=== PATIENT | female | born 1940 ===

== ENCOUNTER 2024-10-11 09:30 | Inpatient (IN) | payer OTHER ==
[~2024-10-11] VITALS: Ht 91.4 cm; Wt 61.7 kg
[2024-10-11] MEDS ORDERED: ATACAND HCT 321 EAC1 PO (10:52)
[2024-10-11] MEDS ORDERED: PEPCID20 MG PO (10:52)
[2024-10-11] MEDS ORDERED: NORVASC5 MG PO (10:52)
[2024-10-11] MEDS ORDERED: LEVOXYL100 MCG PO (10:52)
[2024-10-11] MEDS ORDERED: VITAMIN E400 UNI7 (10:53)
[2024-10-11] MEDS ORDERED: RESTORIL30 MG PO (10:53)
[2024-10-11 10:54] VITALS: BP 149/76
[2024-10-11] MEDS ORDERED: MELATONIN10 M2 (10:54)
[2024-10-17] MEDS ORDERED: OxyCODONE HCL 5 MG TABLET (ROXICODONE) PO PRN (12:00)
[2024-10-17] MEDS ORDERED: MORPHINE SULFATE 4 MG/ML CARTRIDGE IV PRN (12:00)
[2024-10-17] MEDS ORDERED: RINGERS SOLUTION,LACTATED 1,000 ML IV SCH (12:00)
[2024-10-17] MEDS ORDERED: ONDANSETRON HCL 2 MG/ML VIAL IV PRN (12:00)
[2024-10-17] MEDS ORDERED: CEFTRIAXONE SODIUM 2,000 MG VIAL IV ONE (13:00)
[2024-10-17] MEDS ORDERED: BUPIVACAINE HCL 30 ML VIAL IJ ONE (13:00)
[2024-10-17] MEDS ORDERED: METRONIDAZOLE/SODIUM CHLORIDE 500 MG/100 ML PIGGYBACK IV ONE (13:00)
[2024-10-17] MEDS ORDERED: HYOSCYAMINE SULFATE 0.125 MG TAB.SUBL SL SCH (13:00)
[2024-10-17] MEDS ORDERED: LIDOCAINE HCL 1%/EPINEPHRINE 20ML VIAL IJ ONE (13:00)
[2024-10-17] MEDS ORDERED: ACETAMINOPHEN 500 MG GEL..CAP PO SCH (14:00)
[2024-10-17] MEDS ORDERED: hydrALAZINE HCL 20 MG VIAL IV PRN (16:30)
[2024-10-17] MEDS ORDERED: POLYETHYLENE GLYCOL 3350 17 GM BLIST.PACK PO SCH (17:00)
[2024-10-17] MEDS ORDERED: GABAPENTIN 300 MG CAPSULE PO SCH (17:00)
[2024-10-17] MEDS ORDERED: METOCLOPRAMIDE HCL 5 MG/ML VIAL IV SCH (17:00)
[2024-10-17 20:34] VITALS: BP 149/76; O2SAT 98
[2024-10-17 20:58] LABS: BASO % 0.2 % (0.1-1.2); EOS # 0.00 (0.04-0.54); EOS % 0.0 % (0.7-7.0); LYMPH # 0.50 (1.18-3.74); LYMPH % 2.6 % (19.3-53.1); MEAN PLATELET VOLUME 10.20 fl (9.4-12.4); MONO # 1.17 (0.24-0.82); MONO % 6.0 % (4.7-12.5); NEUT # 17.67 (1.56-6.13); NEUT % 90.9 % (34.0-71.1); RED CELL DISTRIBUTION WIDTH 13.5 % (11.6-14.4)
[2024-10-17] MEDS ORDERED: FAMOTIDINE/PF 20 MG/2 ML VIAL IV PUSH SCH (21:00)
[2024-10-18 03:34] VITALS: BP 150/80; O2SAT 97
[2024-10-18] MEDS ORDERED: LEVOTHYROXINE SODIUM 100 MCG TABLET PO SCH (06:00)
[2024-10-18 06:25] LABS: BASO % 0.1 % (0.1-1.2); EOS # 0.00 (0.04-0.54); EOS % 0.0 % (0.7-7.0); LYMPH # 0.57 (1.18-3.74); LYMPH % 3.3 % (19.3-53.1); MEAN PLATELET VOLUME 9.40 fl (9.4-12.4); MONO # 0.82 (0.24-0.82); MONO % 4.8 % (4.7-12.5); NEUT # 15.77 (1.56-6.13); NEUT % 91.5 % (34.0-71.1); RED CELL DISTRIBUTION WIDTH 13.5 % (11.6-14.4)
[2024-10-18 07:10] LABS: BUN CREA RATIO 14.0 (7.0-25.0); CREATININE SERUM 0.92 mg/dL (0.55-1.02); GFR 58.3; GLUCOSE FASTING 124.0 mg/dL (65-100); OSMOLALITY SERUM 279.0 MOSM/KG (275-295)
[2024-10-18 08:00] VITALS: BP 125/75; O2SAT 99
[2024-10-18] MEDS ORDERED: LACTOBACILLUS ACIDOPHILUS 1 CAP CAP PO SCH (09:00)
[2024-10-18] MEDS ORDERED: HYDROCHLOROTHIAZIDE 12.5 MG CAPSULE PO SCH (09:00)
[2024-10-18] MEDS ORDERED: CANDESARTAN CILEXETIL 32 MG TABLET PO SCH (09:00)
[2024-10-18] MEDS ORDERED: AMLODIPINE BESYLATE 5 MG TABLET PO SCH (09:00)
[2024-10-18] MEDS ORDERED: MAGNESIUM SULFATE IN WATER 50 ML IV NR (10:00)
[2024-10-18 16:00] VITALS: BP 111/71; O2SAT 97
[2024-10-18] MEDS ORDERED: ENOXAPARIN SODIUM 40 MG/0.4 ML SYRINGE SUBCUTANEO SCH (17:00)
[2024-10-18] MEDS ORDERED: ATORVASTATIN CALCIUM 20 MG TABLET PO SCH (17:00)
[2024-10-19 01:53] VITALS: BP 97/61; O2SAT 98
[2024-10-19 07:02] LABS: BASO % 0.3 % (0.1-1.2); EOS # 0.00 (0.04-0.54); EOS % 0.0 % (0.7-7.0); LYMPH # 1.60 (1.18-3.74); LYMPH % 10.7 % (19.3-53.1); MEAN PLATELET VOLUME 9.90 fl (9.4-12.4); MONO # 1.26 (0.24-0.82); MONO % 8.4 % (4.7-12.5); NEUT # 12.02 (1.56-6.13); NEUT % 80.2 % (34.0-71.1); RED CELL DISTRIBUTION WIDTH 14.1 % (11.6-14.4)
[2024-10-19 07:14] LABS: BUN CREA RATIO 16.0 (7.0-25.0); CREATININE SERUM 0.99 mg/dL (0.55-1.02); GFR 53.57; GLUCOSE FASTING 89.0 mg/dL (65-100); OSMOLALITY SERUM 286.0 MOSM/KG (275-295)
[2024-10-19 08:25] VITALS: BP 106/70; O2SAT 97
[2024-10-19] MEDS ORDERED: ENOXAPARIN SODIUM 40 MG/0.4 ML SYRINGE SUBCUTANEO SCH (09:00)
[2024-10-19] MEDS ORDERED: INTESTINEX680 M1 PO (11:30)
[2024-10-19] MEDS ORDERED: CELECOXIB200 MG PO (11:30)
[2024-10-19] MEDS ORDERED: LEVSIN/SL0.125 MG SL (11:31)
[2024-10-19] MEDS ORDERED: NEURONTIN300 MG PO (11:31)
[2024-10-19] MEDS ORDERED: AMOX-CLAV 875-1 EACH PO (11:31)
[2024-10-19] MEDS ORDERED: NAPH,MB-DB/K PH,MBDB 1 PKT PACKET PO NR (12:15)
== END 2024-10-19 15:51 | disposition home or self-care (01) | DRG 334 ==
LOC: SURH 10-17 09:30 → SURG 10-17 10:05 → O/R 10-17 10:05 → SURH 10-17 15:30 → SURG 10-17 16:29
PROVIDERS: Internal Medicine Geriatric Medicine; ADMIT Surgery; ATTEND Surgery
PROC: 0DJD8ZZ Inspection of Lower Intestinal Tract, Via Natural or Artificial Opening Endoscopic (ICD-10-PCS; 2024-10-17)
PROC: 0DTP4ZZ Resection of Rectum, Percutaneous Endoscopic Approach (ICD-10-PCS; principal; 2024-10-17 15:30)
DX: K57.32 Diverticulitis of large intestine without perforation or abscess without bleeding (principal)